=== PATIENT | male | born 1985 | race African-American/Black ===

== ENCOUNTER 2023-10-22 12:13 | Emergency (ER) | payer SELFPAY ==
[~2023-10-22] VITALS: Ht 434.3 cm; Wt 79.5 kg
[2023-10-22 12:19] VITALS: TEMP 988.9
[2023-10-22] MEDS ORDERED: Haloperidol Lactate 5 MG/ML VIAL IV ONE (13:15)
[2023-10-22] MEDS ORDERED: NS 1,000 ML IV ONE (13:15)
[2023-10-22 13:40] LABS: BASO # 0.1 K/mm3 (0.0-0.2); BASO % 1.3 % (0.0-2.0); EOS # 0.2 K/mm3 (0.0-0.7); EOS % 3.3 % (0.0-4.0); GRAN # 3.5 K/mm3 (1.4-6.5); HEMATOCRIT 45.5 % (42.0-52.0); HEMOGLOBIN 15.7 g/dl (13.5-18.0); LYMPH # 1.3 K/mm3 (1.2-3.4); LYMPH % 23.6 % (20.0-51.0); MEAN CELL VOLUME 87 fl (80.0-100.0); MEAN CORPUSCULAR HEMOGLOBIN 30 pg (27-31); MEAN CORPUSCULAR HGB CONC 35 g/dl (33.0-37.0); MEAN PLATELET VOLUME 9.7 fl (7.4-10.4); MONO # 0.4 K/mm3 (0.1-0.6); MONO % 6.5 % (1.7-9.3); PLATELET COUNT 248 K/mm3 (130-400); RED BLOOD COUNT 5.23 M/mm3 (4.20-5.60); REDCELL DISTRIBUTION WIDTH-CV 12.5 % (11.5-14.5)
[2023-10-22 14:02] LABS: BILIRUBIN,TOTAL 0.9 mg/dL (0.2-1.2); CALCIUM 9.7 mg/dL (8.4-10.2); POTASSIUM 3.5 mEq/L (3.5-4.5); TOTAL PROTEIN 7.2 g/dl (6.2-8.1)
[2023-10-22] MEDS ORDERED: droPERidol 2.5 MG/ML 2 ML VIAL IV ONE (14:30)
[2023-10-22 14:57] VITALS: BP 133/83; PULSE 69
[2023-10-22] MEDS ORDERED: ZOFRAN ODT4 MG PO (15:37)
== END 2023-10-22 14:59 | disposition home or self-care (01) ==
LOC: COL.ER 12:13
PROVIDERS: Personal Emergency Response Attendant
DX: R11.10 Vomiting, unspecified (principal); F12.90 Cannabis use, unspecified, uncomplicated
CPT/HCPCS: J1630; J1790; J7030